=== PATIENT | female | born 1995 | race Caucasian/White ===

== ENCOUNTER 2018-08-21 12:16 | Emergency (ER) | payer SELFPAY ==
[~2018-08-21] VITALS: Ht 154.9 cm; Wt 69.1 kg
[~2018-08-21 12:16] MED LIST: DEP0PROVERA; MACROBID100 MG PO; NO HOME MEDS PER MOM; PRENATAL1 TAB PO
[2018-08-21] MEDS ORDERED: PRILOSEC20 MG PO (12:26)
[2018-08-21] MEDS ORDERED: FIORICET PO (12:26)
[2018-08-21 13:09] LABS: HEMATOCRIT 42.5 % (37.0-47.0); IMMATURE GRANULOCYTES 0.9 % (0.0-5.0); MEAN CORPUSCULAR HGB CONC 32.9 g/L CALC (32.0-36.0); NEUT# 6.3 thou/uL (2.00-7.15); RED BLOOD COUNT 4.83 mill/uL (4.20-5.60); RED CELL DISTRI WIDTH 13.2 % (11.5-15.5)
[2018-08-21 13:25] LABS: ALKALINE PHOSPHATASE 114 u/l (38-126); ANION GAP 17 (6-22 (CALC)); BILIRUBIN, TOTAL 0.3 mg/dL (0.0-1.4); BUN 8 mg/dL (7-17); BUN/CREATININE RATIO 16 (12-20 (CALC)); CARBON DIOXIDE 22 mmol/l (22-30); CHLORIDE 105 mmol/l (95-108); CREATININE 0.5 mg/dL (0.5-1.0); GFR > 60 ML/MIN (>=60 (CALC)); GFR FOR AFR.AMER. > 60 ML/MIN (>=60 (CALC)); LIPASE 74 u/l (23-300); SGOT/AST 28 u/l (14-36); SODIUM 140 mmol/l (137-146); TOTAL PROTEIN 8.2 g/dL (6.3-8.2)
[2018-08-21 13:31] LABS: ALBUMIN 4.7 g/dL (3.2-5.0)
[2018-08-21] MEDS ORDERED: PROTONIX40 M2 PO (14:00)
[2018-08-21] MEDS ORDERED: ZOFRAN4 MG/TAB PO (14:00)
[2018-08-21 14:08] VITALS: BP 130/92
== END 2018-08-21 14:13 | disposition home or self-care (01) | DRG 93 ==
LOC: ED 12:16
PROVIDERS: Emergency Medicine
DX: G89.29 Other chronic pain (principal); R10.13 Epigastric pain; R11.2 Nausea with vomiting, unspecified; K21.9 Gastro-esophageal reflux disease without esophagitis

== ENCOUNTER 2020-03-20 11:28 | Emergency (ER) | payer MEDICAID ==
[~2020-03-20 11:28] MED LIST changes: +FIORICET PO; +PRILOSEC20 MG PO; +PROTONIX40 M2 PO; +ZOFRAN4 MG/TAB PO
[2020-03-20 12:46] LABS: HEMATOCRIT 36.6 % (37.0-47.0); IMMATURE GRANULOCYTES 0.5 % (0.0-5.0); MEAN CORPUSCULAR HGB 24.8 pG CALC (26.0-32.0); MEAN CORPUSCULAR HGB CONC 30.9 g/dL CAL (32.0-36.0); NEUT# 6.23 thou/uL (2.00-7.15); RED BLOOD COUNT 4.55 mill/uL (4.20-5.60); RED CELL DISTRI WIDTH 16.3 % (11.5-15.5)
[2020-03-20 12:53] LABS: HEMOGLOBIN 11.3 g/dl (12.0-16.0); MEAN CELL VOLUME 80.4 fL CALC (80.0-100.0)
[2020-03-20 13:03] LABS: ALBUMIN 4.1 g/dL (3.2-5.0); ALKALINE PHOSPHATASE 88 u/l (38-126); AMYLASE 34 u/l (30-110); ANION GAP 13 (6-22 (CALC)); BUN 7 mg/dL (7-17); BUN/CREATININE RATIO 11 (12-20 (CALC)); CARBON DIOXIDE 22 mmol/l (22-30); CHLORIDE 104 mmol/l (95-108); CREATININE 0.6 mg/dL (0.5-1.0); GFR > 60 ML/MIN (>=60 (CALC)); GFR FOR AFR.AMER. > 60 ML/MIN (>=60 (CALC)); LIPASE 54 u/l (23-300); POTASSIUM 3.8 mmol/l (3.5-5.1); SGOT/AST 24 u/l (14-36); SODIUM 135 mmol/l (137-146); TOTAL PROTEIN 7.3 g/dL (6.3-8.2)
[2020-03-20 13:05] LABS: BILIRUBIN, TOTAL 0.6 mg/dL (0.0-1.4)
[2020-03-20 15:33] LABS: URINE BILIRUBIN - DIPSTICK NEGATIVE (NEGATIVE); URINE BLOOD DIPSTICK NEGATIVE (NEGATIVE); URINE COLOR YELLOW; URINE GLUCOSE - DIPSTICK NEGATIVE (NEGATIVE); URINE KETONE 15 mg/dL (NEGATIVE); URINE LEUK ESTERASE NEGATIVE (NEGATIVE); URINE NITRITE - DIPSTICK NEGATIVE (Negative); URINE PROTEIN - DIPSTICK NEGATIVE (NEG-TRACE); URINE SPECIFIC GRAVITY 1.025; URINE UROBILINOGEN - DIPSTICK 0.2 E.U./dL (0.2)
[2020-03-20] MEDS ORDERED: TRAMADOL HYDROC50 MG PO (15:52)
[2020-03-20] MEDS ORDERED: ONDANSETRON4 MG PO (15:52)
[2020-03-20] MEDS ORDERED: PROTONIX40 M2 PO (15:52)
[2020-03-20 16:10] VITALS: BP 128/81
== END 2020-03-20 16:10 | disposition home or self-care (01) ==
LOC: ED 11:28
DX: R10.11 Right upper quadrant pain (principal); R35.0 Frequency of micturition
CPT/HCPCS: S0164

== ENCOUNTER 2020-05-15 11:27 | Emergency (ER) | payer OTHER ==
[~2020-05-15] VITALS: Ht 154.9 cm; Wt 70.4 kg
[~2020-05-15 11:27] MED LIST changes: +ONDANSETRON4 MG PO; +TRAMADOL HYDROC50 MG PO
[2020-05-15 13:30] VITALS: BP 130/72
== END 2020-05-15 13:30 | disposition home or self-care (01) ==
LOC: ED 11:27
DX: R05 Cough (principal); Z20.828 Contact with and (suspected) exposure to other viral communicable diseases

== ENCOUNTER 2020-05-27 04:03 | Emergency (ER) | payer OTHER ==
[~2020-05-27] VITALS: Ht 154.9 cm; Wt 54.4 kg
[2020-05-27 05:10] LABS: HEMOGLOBIN 11.8 g/dl (12.0-16.0); IMMATURE GRANULOCYTES 0.3 % (0.0-5.0); MEAN CELL VOLUME 82.6 fL CALC (80.0-100.0); MEAN CORPUSCULAR HGB CONC 30.3 g/dL CAL (32.0-36.0); NEUT# 6.88 thou/uL (2.00-7.15); RED BLOOD COUNT 4.72 mill/uL (4.20-5.60); RED CELL DISTRI WIDTH 15.3 % (11.5-15.5)
[2020-05-27 05:45] VITALS: BP 145/81
== END 2020-05-27 05:45 | disposition home or self-care (01) ==
LOC: ED 04:03
PROVIDERS: Family Medicine
DX: J06.9 Acute upper respiratory infection, unspecified (principal)

== ENCOUNTER 2020-07-05 09:36 | Emergency (ER) | payer OTHER ==
[~2020-07-05] VITALS: Ht 154.9 cm; Wt 102.0 kg
[2020-07-05] MEDS ORDERED: OMEPRAZOLE20 MG PO (09:55)
[2020-07-05 11:16] LABS: HCG SERUM/URINE (NEG/POS) NEGATIVE (NEGATIVE)
[2020-07-05 11:23] VITALS: BP 135/84
== END 2020-07-05 11:23 | disposition home or self-care (01) ==
LOC: ED 09:36
PROVIDERS: Family Medicine
DX: R05 Cough (principal); J02.9 Acute pharyngitis, unspecified; Z20.828 Contact with and (suspected) exposure to other viral communicable diseases

== ENCOUNTER 2020-10-14 23:09 | Emergency (ER) | payer OTHER ==
[~2020-10-14] VITALS: Ht 154.9 cm; Wt 63.6 kg
[~2020-10-14 23:09] MED LIST changes: +OMEPRAZOLE20 MG PO
[2020-10-15 00:10] LABS: HEMATOCRIT 42.9 % (37.0-47.0); HEMOGLOBIN 13.5 g/dl (12.0-16.0); IMMATURE GRANULOCYTES 0.5 % (0.0-5.0); MEAN CELL VOLUME 84.4 fL CALC (80.0-100.0); MEAN CORPUSCULAR HGB 26.6 pG CALC (26.0-32.0); MEAN CORPUSCULAR HGB CONC 31.5 g/dL CAL (32.0-36.0); NEUT# 10.49 thou/uL (2.00-7.15); RED BLOOD COUNT 5.08 mill/uL (4.20-5.60); RED CELL DISTRI WIDTH 14.9 % (11.5-15.5)
[2020-10-15 00:41] LABS: ALBUMIN 4.6 g/dL (3.2-5.0); ALKALINE PHOSPHATASE 106 u/l (38-126); AMYLASE 53 u/l (30-110); ANION GAP 14 (6-22 (CALC)); BILIRUBIN, TOTAL 0.4 mg/dL (0.0-1.4); BUN 12 mg/dL (7-17); BUN/CREATININE RATIO 17 (12-20 (CALC)); CARBON DIOXIDE 26 mmol/l (22-30); CHLORIDE 104 mmol/l (95-108); CREATININE 0.7 mg/dL (0.5-1.0); GFR > 60 ML/MIN (>=60 (CALC)); GFR FOR AFR.AMER. > 60 ML/MIN (>=60 (CALC)); LIPASE 72 u/l (23-300); POTASSIUM 3.8 mmol/l (3.5-5.1); SGOT/AST 31 u/l (14-36); SODIUM 141 mmol/l (137-146); TOTAL PROTEIN 7.9 g/dL (6.3-8.2)
[2020-10-15 00:44] LABS: URINE BILIRUBIN - DIPSTICK NEGATIVE (NEGATIVE); URINE BLOOD DIPSTICK NEGATIVE (NEGATIVE); URINE COLOR YELLOW; URINE GLUCOSE - DIPSTICK NEGATIVE (NEGATIVE); URINE KETONE TRACE mg/dL (NEGATIVE); URINE LEUK ESTERASE NEGATIVE (NEGATIVE); URINE NITRITE - DIPSTICK NEGATIVE (Negative); URINE PROTEIN - DIPSTICK NEGATIVE (NEG-TRACE); URINE SPECIFIC GRAVITY >=1.030; URINE UROBILINOGEN - DIPSTICK 0.2 E.U./dL (0.2)
[2020-10-15] MEDS ORDERED: PHENERGAN25 MG/TAB PO (02:18)
[2020-10-15 02:45] VITALS: BP 133/90
== END 2020-10-15 02:45 | disposition home or self-care (01) ==
LOC: ED 23:09
PROVIDERS: Family Medicine
DX: R10.11 Right upper quadrant pain (principal); K21.9 Gastro-esophageal reflux disease without esophagitis
CPT/HCPCS: Q9967

== ENCOUNTER 2020-10-23 08:22 | Emergency (ER) | payer OTHER ==
[~2020-10-23] VITALS: Ht 154.9 cm; Wt 70.5 kg
[~2020-10-23 08:22] MED LIST changes: +PHENERGAN25 MG/TAB PO
[2020-10-23] MEDS ORDERED: CLARITIN10 M1 PO (10:04)
[2020-10-23] MEDS ORDERED: AMOXICILLIN500 MG PO (10:04)
[2020-10-23 10:15] VITALS: BP 125/77
== END 2020-10-23 10:15 | disposition home or self-care (01) ==
LOC: ED 08:22
DX: J02.9 Acute pharyngitis, unspecified (principal); Z20.828 Contact with and (suspected) exposure to other viral communicable diseases

== ENCOUNTER 2022-01-16 16:20 | Emergency (ER) | payer OTHER ==
[~2022-01-16] VITALS: Ht 154.9 cm; Wt 77.0 kg
[2022-01-16] VITALS (13 sets, daily range): BP systolic 70–129; BP diastolic 55–89
[~2022-01-16 16:20] MED LIST changes: +AMOXICILLIN500 MG PO; +CLARITIN10 M1 PO
[2022-01-16 18:01] LABS: HEMATOCRIT 38.5 % (37.0-47.0); HEMOGLOBIN 12.2 g/dl (12.0-16.0); IMMATURE GRANULOCYTES 0.2 % (0.0-5.0); MEAN CELL VOLUME 86.9 fL CALC (80.0-100.0); MEAN CORPUSCULAR HGB 27.5 pG CALC (26.0-32.0); MEAN CORPUSCULAR HGB CONC 31.7 g/dL CAL (32.0-36.0); NEUT# 6.5 thou/uL (2.00-7.15); RED BLOOD COUNT 4.43 mill/uL (4.20-5.60)
[2022-01-16 18:05] LABS: URINE BILIRUBIN - DIPSTICK NEGATIVE (NEGATIVE); URINE BLOOD DIPSTICK NEGATIVE (NEGATIVE); URINE COLOR YELLOW; URINE GLUCOSE - DIPSTICK NEGATIVE (NEGATIVE); URINE KETONE NEGATIVE (NEGATIVE); URINE LEUK ESTERASE NEGATIVE (NEGATIVE); URINE PROTEIN - DIPSTICK NEGATIVE (NEG-TRACE); URINE SPECIFIC GRAVITY 1.025; URINE UROBILINOGEN - DIPSTICK 0.2 E.U./dL (0.2)
[2022-01-16 18:06] LABS: URINE NITRITE - DIPSTICK NEGATIVE (Negative)
[2022-01-16 18:13] LABS: ALBUMIN 4.5 g/dL (3.2-5.0); ALKALINE PHOSPHATASE 89 u/l (38-126); ANION GAP 14 (6-22 (CALC)); BILIRUBIN, TOTAL 0.3 mg/dL (0.0-1.4); BUN 10 mg/dL (7-17); BUN/CREATININE RATIO 15 (12-20 (CALC)); CARBON DIOXIDE 25 mmol/l (22-30); CHLORIDE 103 mmol/l (95-108); CREATININE 0.7 mg/dL (0.5-1.0); GFR > 60 ML/MIN (>=60 (CALC)); GFR FOR AFR.AMER. > 60 ML/MIN (>=60 (CALC)); POTASSIUM 3.6 mmol/l (3.5-5.1); SGOT/AST 31 u/l (14-36); SODIUM 138 mmol/l (137-146); TOTAL PROTEIN 8.2 g/dL (6.3-8.2)
[2022-01-16] MEDS ORDERED: MECLIZINE25 MG PO (20:09)
== END 2022-01-16 20:45 | disposition home or self-care (01) ==
LOC: ED 16:20
PROVIDERS: Nurse Practitioner
DX: R42 Dizziness and giddiness (principal); K21.9 Gastro-esophageal reflux disease without esophagitis; Z20.822 Contact with and (suspected) exposure to COVID-19